=== PATIENT | male | born 1950 | race Caucasian/White ===

== ENCOUNTER 2019-11-03 13:10 | Outpatient (REF) | payer MEDICARE, SELFPAY ==
[2019-11-03 13:26] LABS: Abs Immature Grans 0.02 k/cumm (0.0-0.09); HGB 10.3 g/dL (13.5-17.5); Mean Corp. HGB Concentration 32.2 g/dL (32.0-36.0); Mean Corpuscular Hemoglobin 30.9 pg (27.0-33.0); Mean Corpuscular Volume 96.1 fL (80-95); RBC 3.33 m/cumm (4.50-6.00); RBC Distribution Width 20.3 % (11.8-14.1); White Blood Cell Count 4.84 k/cumm (4.4-10.8)
[2019-11-03 13:34] LABS: ALT 12 U/L (16-63); AST 13 U/L (15-37); Albumin 3.5 g/dL (3.4-5.0); Alkaline Phosphatase 94 U/L (46-116); Anion Gap 8.5 mmol/L (3-11); BUN 15 mg/dL (7-18); Bilirubin, Total 0.6 mg/dL (0.2-1.0); CO2 25.5 mmol/L (21.0-32.0); CREATININE 1.28 mg/dL (0.70-1.30); Calcium 8.2 mg/dL (8.5-10.1); Chloride 105 mmol/L (98-107); Estimated GFR 56.06 (mL/min/1.73m2); Glucose 81 mg/dL (74-106); LDH 182 U/L (85-227); Potassium 4.1 mmol/L (3.5-5.1); Sodium 139 mmol/L (136-145); Total Protein 5.9 g/dL (6.4-8.2)
[2019-11-03 13:55] LABS: Absolute Eosinophil Count 0.63 k/cumm (0.0-0.7); Absolute Lymphocyte Count 2.37 k/cumm (1.2-3.4); Absolute Monocyte Count 0.39 k/cumm (0.11-0.7); Absolute Neutrophil Count 1.45 k/cumm (1.2-6.7); Anisocytosis 3+; Atypical Lymphocytes % 2; Diff Comment Manual Differential; Platelet Count 128 x1000/uL (130-400)
[2019-11-03 13:56] LABS: Poikilocytes 2+
== END 2019-11-03 13:30 ==
LOC: LBN 13:10
PROVIDERS: PCP Neuromusculoskeletal Medicine & OMM; Visit Provider Internal Medicine Hematology & Oncology
DX: C82.90 Follicular lymphoma, unspecified, unspecified site (principal)
CPT/HCPCS: 80053; 83615; 85025